=== PATIENT | female | born 1990 | race Caucasian/White ===

== ENCOUNTER 2016-06-13 10:22 | Emergency (ER) | payer MEDICAID, OTHER ==
[~2016-06-13] VITALS: Ht 160 cm; Wt 68.0 kg
[~2016-06-13 10:22] MED LIST: PREN-93 PO
[2016-06-13 10:24] VITALS: Ht 160 cm; Wt 68.0 kg
[2016-06-13] MEDS ORDERED: IBUPROFEN 600 MG TAB PO ONE (13:30)
--- NOTE | 2016-06-13 13:55 | RADRPT ---
PROCEDURE: XR Right Wrist. CLINICAL INDICATION: Trauma due to a fall. Right wrist pain. TECHNIQUE: Four views. Frontal, lateral, oblique, and scaphoid view. COMPARISON: No prior studies are available for comparison. FINDINGS: There is no fracture or dislocation. The soft tissues are normal. Articular surfaces are intact. There is no lytic or blastic lesion. There is no radiopaque foreign body. IMPRESSION: 1. Normal images of the right wrist. RPTAT: QQ .Naeem Chávez MD, Date Time Electronically viewed and signed by .Naeem Chávez MD, on 06/13/2016 13:54 .R/
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
--- NOTE | 2016-06-13 14:07 | RADRPT ---
PROCEDURE: Left knee radiographs. CLINICAL INDICATION: Trauma. Left knee pain. TECHNIQUE: Three views. Frontal, lateral, and oblique. COMPARISON: No prior studies are available for comparison. FINDINGS: There is no fracture or dislocation. The soft tissues are normal. Articular surfaces are intact. There is no lytic or blastic lesion. There is no radiopaque foreign body. IMPRESSION: 1. Normal images of the left knee. RPTAT: QQ .Naeem Chávez MD, MD Date Time Electronically viewed and signed by .Naeem Chávez MD, on 06/13/2016 14:07 .R/
[2016-06-13] MEDS ORDERED: IBUP-1542 PO (14:19)
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
== END 2016-06-13 15:07 | disposition home or self-care (01) ==
LOC: FTE 10:22
DX: S80.02XA Contusion of left knee, initial encounter (principal); S63.91XA Sprain of unspecified part of right wrist and hand, initial encounter; V79.9XXA Bus occupant (driver) (passenger) injured in unspecified traffic accident, initial encounter
CPT/HCPCS: 29125; 73110; 73130; 73562; Z7502; Z7610

== ENCOUNTER 2017-05-13 15:07 | Emergency (ER) | END 2017-05-13 18:45 | disposition home or self-care (01) ==